=== PATIENT | male | born 1955 | race Caucasian/White ===

== ENCOUNTER → 2018-05-26 | Outpatient (CLI) | payer MEDICARE ==
[2018-05-26 20:11] LABS: BASOPHILS ABSOLUTE AUTO 0.06 K/mm3 (0.00-0.23); BASOPHILS PERCENT AUTO 1 % (0-2); EOSINOPHILS ABSOLUTE AUTO 0.36 K/mm3 (0.00-0.68); EOSINOPHILS PERCENT AUTO 5 % (0-6); Hematocrit 47.1 % (37.0-53.0); IMMATURE GRAN ABSOLUTE AUTO 0.03 K/mm3 (0.00-0.10); IMMATURE GRAN PERCENT AUTO 0 % (0-1); LYMPHOCYTES ABSOLUTE AUTO 1.59 K/mm3 (0.84-5.20); LYMPHOCYTES PERCENT AUTO 21 % (21-46); MONOCYTES PERCENT AUTO 9 % (4-13); Mean Corpuscular HGB 29.8 pg (26.0-34.0); Mean Corpuscular HGB Conc 31.8 g/dL (31.5-36.5); Mean Corpuscular Volume 94 fL (80-100); Mean Platelet Volume 11.2 fL (9.1-12.4); NEUTROPHILS ABSOLUTE AUTO 4.74 K/mm3 (1.96-9.15); NEUTROPHILS PERCENT AUTO 63 % (41-73); Platelet Count 178 K/mm3 (150-400); RDW Coefficient Variation 13.6 % (11.7-14.2); RDW Standard Deviation 46.7 fL (35.1-46.3); Red Blood Cell Count 5.03 M/mm3 (4.30-5.90); White Blood Cell Count 7.48 K/mm3 (4.00-11.30)
[2018-05-26 20:24] LABS: International Normalized Ratio 2.33; Prothrombin Time Results 22.9 Sec (9.7-11.5)
[2018-05-26 20:46] LABS: Alanine Aminotransfer (ALT/SGP 27 U/L (12-78); Albumin, Blood 3.6 g/dL (3.4-5.0); Albumin/Globulin Ratio 0.9 (0.8-1.8); Alk Phos 82 U/L (50-136); Anion Gap 8 mmol/L (6-16); Aspartate Aminotrans (AST/SGOT 19 U/L (12-37); Bilirubin, Total 0.6 mg/dL (0.1-1.0); Blood Urea Nitrogen 25 mg/dL (8-24); Bun/Creatinine Ratio 24.5 (12.0-20.0); CO2, Blood 31 mmol/L (21-32); Calcium, Blood 8.7 mg/dL (8.5-10.1); Chloride, Blood 101 mmol/L (98-108); Creatinine, Blood 1.02 mg/dL (0.60-1.20); Globulin, Blood 4.2 g/dL (2.2-4.0); Glomerular Filtration Rate >60 (60-); Glucose, Blood 106 mg/dL (70-99); Sodium, Blood 140 mmol/L (136-145); Total Protein, Blood 7.8 g/dL (6.4-8.2)
[2018-05-26 20:58] LABS: Prostate Specific Antigen 0.226 ng/mL (0.000-4.000)
== END | disposition home or self-care (01) ==
LOC: LAB SHORT 19:52 → LAB 19:52
PROVIDERS: Nurse Practitioner Family
DX: Z79.01 Long term (current) use of anticoagulants (principal); Z51.81 Encounter for therapeutic drug level monitoring; Z12.5 Encounter for screening for malignant neoplasm of prostate; I50.9 Heart failure, unspecified; E11.9 Type 2 diabetes mellitus without complications
CPT/HCPCS: 80053; 83036; 83880; 85025; 85610; G0103

== ENCOUNTER → 2018-08-25 | Outpatient (CLI) | payer MEDICARE ==
[2018-08-25 20:23] LABS: International Normalized Ratio 3.24; Prothrombin Time Results 30.9 Sec (9.7-11.5)
== END | disposition home or self-care (01) ==
LOC: LAB 19:53 → LAB SHORT 19:53
PROVIDERS: Nurse Practitioner Family
DX: Z79.01 Long term (current) use of anticoagulants (principal); Z51.81 Encounter for therapeutic drug level monitoring
CPT/HCPCS: 85610

== ENCOUNTER 2020-02-28 00:28 | Day surgery (SDC) | payer MEDICARE | END 2020-02-28 23:16 | disposition home or self-care (01) | LOC: WOUND 00:28 | DX: E11.622 Type 2 diabetes mellitus with other skin ulcer (principal); I11.0 Hypertensive heart disease with heart failure; I50.9 Heart failure, unspecified; L98.9 Disorder of the skin and subcutaneous tissue, unspecified; L98.499 Non-pressure chronic ulcer of skin of other sites with unspecified severity; Z88.5 Allergy status to narcotic agent; Z79.84 Long term (current) use of oral hypoglycemic drugs | CPT/HCPCS: G0463 ==

== ENCOUNTER → 2020-10-19 | Outpatient (CLI) | payer MEDICARE ==
[2020-10-19 19:15] LABS: BASOPHILS ABSOLUTE AUTO 0.07 K/mm3 (0.00-0.23); BASOPHILS PERCENT AUTO 1 % (0-2); EOSINOPHILS ABSOLUTE AUTO 0.37 K/mm3 (0.00-0.68); EOSINOPHILS PERCENT AUTO 6 % (0-6); Hematocrit 42.4 % (37.0-53.0); Hemoglobin 13.7 g/dL (13.5-17.5); IMMATURE GRAN ABSOLUTE AUTO 0.01 K/mm3 (0.00-0.10); IMMATURE GRAN PERCENT AUTO 0 % (0-1); LYMPHOCYTES ABSOLUTE AUTO 1.25 K/mm3 (0.84-5.20); LYMPHOCYTES PERCENT AUTO 21 % (21-46); MONOCYTES ABSOLUTE AUTO 0.54 K/mm3 (0.16-1.47); MONOCYTES PERCENT AUTO 9 % (4-13); Mean Corpuscular HGB 30.4 pg (26.0-34.0); Mean Corpuscular HGB Conc 32.3 g/dL (31.5-36.5); Mean Corpuscular Volume 94 fL (80-100); Mean Platelet Volume 11.4 fL (9.1-12.4); NEUTROPHILS ABSOLUTE AUTO 3.73 K/mm3 (1.96-9.15); NEUTROPHILS PERCENT AUTO 63 % (41-73); Platelet Count 202 K/mm3 (150-400); RDW Standard Deviation 48.6 fL (35.1-46.3); White Blood Cell Count 5.97 K/mm3 (4.00-11.30)
[2020-10-19 21:01] LABS: Alanine Aminotransfer (ALT/SGP 28 U/L (12-78); Albumin, Blood 3.5 g/dL (3.4-5.0); Albumin/Globulin Ratio 0.8 (0.8-1.8); Alk Phos 78 U/L (50-136); Anion Gap 6 mmol/L (6-16); Aspartate Aminotrans (AST/SGOT 21 U/L (12-37); Bilirubin, Total 0.5 mg/dL (0.1-1.0); Blood Urea Nitrogen 31 mg/dL (8-24); Bun/Creatinine Ratio 28.4 (12.0-20.0); CHOL/HDL RATIO 2.3; CO2, Blood 31 mmol/L (21-32); Calcium, Blood 8.6 mg/dL (8.5-10.1); Chloride, Blood 101 mmol/L (98-108); Cholesterol 78 mg/dL (50-200); Creatinine, Blood 1.09 mg/dL (0.60-1.20); Globulin, Blood 4.6 g/dL (2.2-4.0); Glomerular Filtration Rate >60 (60-); Glucose, Blood 112 mg/dL (70-99); HDL Cholesterol 34 mg/dL (>39); LDL/HDL RATIO 0.6; Low Density Lipoprotein Chol 20 mg/dL (0-110); Potassium, Blood 4.1 mmol/L (3.5-5.5); Sodium, Blood 138 mmol/L (136-145); Thyroid Stimulating Hormone 0.396 uIU/mL (0.360-4.800); Total Protein, Blood 8.1 g/dL (6.4-8.2); Triglycerides 118 mg/dL (30-160); Very Low Density Lipoprot Chol 23 mg/dL (6-32)
== END | disposition home or self-care (01) ==
LOC: LAB 17:50 → LAB SHORT 17:50
PROVIDERS: Nurse Practitioner Family
DX: E78.5 Hyperlipidemia, unspecified (principal); I10 Essential (primary) hypertension
CPT/HCPCS: 80053; 80061; 84443; 85025

== ENCOUNTER → 2021-10-26 | Outpatient (CLI) | payer MEDICARE ==
[2021-10-26 20:12] LABS: BASOPHILS ABSOLUTE AUTO 0.06 K/mm3 (0.00-0.23); BASOPHILS PERCENT AUTO 1 % (0-2); EOSINOPHILS ABSOLUTE AUTO 0.37 K/mm3 (0.00-0.68); EOSINOPHILS PERCENT AUTO 6 % (0-6); Hematocrit 47.1 % (37.0-53.0); Hemoglobin 14.3 g/dL (13.5-17.5); IMMATURE GRAN ABSOLUTE AUTO 0.01 K/mm3 (0.00-0.10); IMMATURE GRAN PERCENT AUTO 0 % (0-1); LYMPHOCYTES ABSOLUTE AUTO 1.52 K/mm3 (0.84-5.20); LYMPHOCYTES PERCENT AUTO 23 % (21-46); MONOCYTES PERCENT AUTO 8 % (4-13); Mean Corpuscular HGB 30.7 pg (26.0-34.0); Mean Corpuscular HGB Conc 30.4 g/dL (31.5-36.5); Mean Corpuscular Volume 101 fL (80-100); Mean Platelet Volume 11.4 fL (9.1-12.4); NEUTROPHILS ABSOLUTE AUTO 4.24 K/mm3 (1.96-9.15); NEUTROPHILS PERCENT AUTO 63 % (41-73); Platelet Count 204 K/mm3 (150-400); RDW Coefficient Variation 14.2 % (11.7-14.2); RDW Standard Deviation 53.2 fL (35.1-46.3); Red Blood Cell Count 4.66 M/mm3 (4.30-5.90)
[2021-10-26 20:40] LABS: Alanine Aminotransfer (ALT/SGP 20 U/L (12-78); Albumin, Blood 3.6 g/dL (3.4-5.0); Albumin/Globulin Ratio 0.9 (0.8-1.8); Alk Phos 82 U/L (50-136); Anion Gap 7 mmol/L (6-16); Aspartate Aminotrans (AST/SGOT 20 U/L (12-37); Bilirubin, Total 0.5 mg/dL (0.1-1.0); Blood Urea Nitrogen 26 mg/dL (8-24); CHOL/HDL RATIO 2.4; CO2, Blood 31 mmol/L (21-32); Chloride, Blood 103 mmol/L (98-108); Cholesterol 95 mg/dL (50-200); Creatinine, Blood 1.04 mg/dL (0.60-1.20); Globulin, Blood 3.8 g/dL (2.2-4.0); Glomerular Filtration Rate 79 (60-); Glucose, Blood 112 mg/dL (70-99); HDL Cholesterol 39 mg/dL (>39); LDL/HDL RATIO 0.9; Low Density Lipoprotein Chol 34 mg/dL (0-110); Potassium, Blood 4.3 mmol/L (3.5-5.5); Sodium, Blood 141 mmol/L (136-145); Thyroid Stimulating Hormone 0.475 uIU/mL (0.360-4.800); Total Protein, Blood 7.4 g/dL (6.4-8.2); Triglycerides 112 mg/dL (30-160); Very Low Density Lipoprot Chol 22 mg/dL (6-32)
== END | disposition home or self-care (01) ==
LOC: LAB SHORT 19:24 → LAB 19:24
PROVIDERS: Nurse Practitioner Family
DX: E11.40 Type 2 diabetes mellitus with diabetic neuropathy, unspecified (principal); E11.65 Type 2 diabetes mellitus with hyperglycemia
CPT/HCPCS: 80053; 80061; 83036; 84443; 85025

== ENCOUNTER 2022-11-27 17:20 | Emergency (ER) | payer OTHER, MEDICARE | END 2022-11-27 20:33 | disposition home or self-care (01) | LOC: ER 17:20 | DX: S22.069A Unspecified fracture of T7-T8 vertebra, initial encounter for closed fracture (principal); V43.63XA Car passenger injured in collision with pick-up truck in traffic accident, initial encounter; Z88.5 Allergy status to narcotic agent; E11.9 Type 2 diabetes mellitus without complications; I48.91 Unspecified atrial fibrillation ==

== ENCOUNTER 2023-05-26 10:01 | Emergency (ER) | payer MEDICARE ==
[~2023-05-26] VITALS: Ht 177.8 cm; Wt 145.2 kg
[~2023-05-26 10:01] MED LIST: OXAYDO5 M1 PO
[2023-05-26 11:22] LABS: BASOPHILS ABSOLUTE AUTO 0.06 K/mm3 (0.00-0.23); BASOPHILS PERCENT AUTO 1 % (0-2); EOSINOPHILS ABSOLUTE AUTO 0.79 K/mm3 (0.00-0.68); EOSINOPHILS PERCENT AUTO 12 % (0-6); Hematocrit 39.3 % (37.0-53.0); Hemoglobin 12.9 g/dL (13.5-17.5); IMMATURE GRAN ABSOLUTE AUTO 0.02 K/mm3 (0.00-0.10); IMMATURE GRAN PERCENT AUTO 0 % (0-1); LYMPHOCYTES ABSOLUTE AUTO 1.35 K/mm3 (0.84-5.20); LYMPHOCYTES PERCENT AUTO 21 % (21-46); MONOCYTES ABSOLUTE AUTO 0.72 K/mm3 (0.16-1.47); MONOCYTES PERCENT AUTO 11 % (4-13); Mean Corpuscular HGB Conc 32.8 g/dL (31.5-36.5); Mean Corpuscular Volume 95 fL (80-100); Mean Platelet Volume 10.3 fL (9.1-12.4); NEUTROPHILS ABSOLUTE AUTO 3.46 K/mm3 (1.96-9.15); NEUTROPHILS PERCENT AUTO 54 % (41-73); Platelet Count 200 K/mm3 (150-400); RDW Coefficient Variation 13.6 % (11.7-14.2); RDW Standard Deviation 47.6 fL (35.1-46.3); Red Blood Cell Count 4.16 M/mm3 (4.30-5.90)
[2023-05-26 11:45] LABS: Albumin, Blood 3.3 g/dL (3.4-5.0); Albumin/Globulin Ratio 0.8 (0.8-1.8); Bilirubin, Total 0.4 mg/dL (0.1-1.0); Bun/Creatinine Ratio 34.2 (12.0-20.0); Calcium, Blood 9.5 mg/dL (8.5-10.1); Creatinine, Blood 1.14 mg/dL (0.60-1.20); Globulin, Blood 4.3 g/dL (2.2-4.0); Potassium, Blood 4.3 mmol/L (3.5-5.5); Total Protein, Blood 7.6 g/dL (6.4-8.2)
[2023-05-26] MEDS ORDERED: CARVEDILOL25 M9 PO (12:50)
[2023-05-26] MEDS ORDERED: PROZAC2010 PO (12:50)
[2023-05-26] MEDS ORDERED: METF500 PO (12:50)
[2023-05-26] MEDS ORDERED: ATOR10 PO (12:51)
[2023-05-26] MEDS ORDERED: LISI20 PO (12:51)
[2023-05-26] MEDS ORDERED: KLOR-CON 1010 ME9 PO (12:51)
[2023-05-26] MEDS ORDERED: FURO40 PO (12:52)
[2023-05-26] MEDS ORDERED: LIDO700A20 TOP (12:53)
[2023-05-26] MEDS ORDERED: ACET500 PO (12:53)
[2023-05-26] MEDS ORDERED: ASPI81CH PO (12:53)
[2023-05-26] MEDS ORDERED: XARELTO20 MG PO (12:53)
[2023-05-26] MEDS ORDERED: IRON18 MG PO (12:54)
[2023-05-26 13:02] LABS: Influenza A, PCR NEGATIVE (NEGATIVE); Influenza B, PCR NEGATIVE (NEGATIVE); Resp Syncytial Virus, PCR NEGATIVE (NEGATIVE); SARS-Cov-2 (COVID-19) PCR, MMC NEGATIVE (NEGATIVE)
[2023-05-26 14:15] VITALS: BP 182/104
== END 2023-05-26 14:44 | disposition home or self-care (01) ==
LOC: ER 10:01
PROVIDERS: Emergency Medicine; Physician Assistant
DX: J84.10 Pulmonary fibrosis, unspecified (principal); I48.91 Unspecified atrial fibrillation; Z20.822 Contact with and (suspected) exposure to COVID-19; Z79.01 Long term (current) use of anticoagulants
CPT/HCPCS: 0241U; 71046; 80053; 83880; 85025; 93005; 93010; 99285-25

== ENCOUNTER 2023-09-21 13:02 | Inpatient (IN) | payer MEDICARE ==
[~2023-09-21] VITALS: Ht 177.8 cm; Wt 143.0 kg
[~2023-09-21 13:02] MED LIST changes: +ACET500 PO; +AMOCLA875 PO; +ASPI81CH PO; +ATOR10 PO; +AZIT250 PO; +CARVEDILOL25 M9 PO; +FURO40 PO; +GLUCOPHAGE1000 M1 PO; +IRON18 MG PO; +KLOR-CON 1010 ME9 PO; +LIDO700A20 TOP; +LISI20 PO; +PROZAC2010 PO; +Prednisone20 MG PO; +XARELTO20 MG PO
[2023-09-21 14:00] LABS: Hematocrit 33.5 % (37.0-53.0); Hemoglobin 10.9 g/dL (13.5-17.5); Mean Corpuscular HGB 31.5 pg (26.0-34.0); Mean Corpuscular HGB Conc 32.5 g/dL (31.5-36.5); Mean Corpuscular Volume 97 fL (80-100); Mean Platelet Volume 10.7 fL (9.1-12.4); Platelet Count 156 K/mm3 (150-400); RDW Coefficient Variation 14.1 % (11.7-14.2); RDW Standard Deviation 50.4 fL (35.1-46.3); Red Blood Cell Count 3.46 M/mm3 (4.30-5.90); White Blood Cell Count 5.47 K/mm3 (4.00-11.30)
[2023-09-21 14:11] LABS: Albumin, Blood 3.1 g/dL (3.4-5.0); Albumin/Globulin Ratio 0.8 (0.8-1.8); Bilirubin, Total 0.5 mg/dL (0.1-1.0); Bun/Creatinine Ratio 44.7 (12.0-20.0); Creatinine, Blood 0.96 mg/dL (0.60-1.20); Potassium, Blood 4.5 mmol/L (3.5-5.5); Total Protein, Blood 7.1 g/dL (6.4-8.2)
[2023-09-21 14:29] LABS: BAND PERCENT MAN 15 % (0-8); BASOPHILS PERCENT MAN 0 % (0-2); EOSINOPHILS PERCENT MAN 2 % (0-6); LYMPHOCYTES ABSOLUTE MAN 0.76 K/mm3 (0.84-5.20); LYMPHOCYTES PERCENT MAN 14 % (21-46); MONOCYTES ABSOLUTE MAN 0.43 K/mm3 (0.16-1.47); MONOCYTES PERCENT MAN 8 % (4-13); NEUTROPHILS ABSOLUTE MAN 4.15 K/mm3 (1.96-9.15); SEG NEUTROPHILS PERCENT MAN 61 % (41-73); TOTAL CELLS COUNTED 100
[2023-09-21 15:02] LABS: Base Excess Venous 7.3 mmol/L; Bicarbonate Venous 29.3 mmol/L (24.0-30.0); PCO2 Venous 55.3 mmHg (38-42); pH Blood Venous 7.38 (7.34-7.37)
[2023-09-21 16:20] LABS: Influenza A, PCR NEGATIVE (NEGATIVE); Influenza B, PCR NEGATIVE (NEGATIVE); Resp Syncytial Virus, PCR NEGATIVE (NEGATIVE); SARS-Cov-2 (COVID-19) PCR, MMC NEGATIVE (NEGATIVE)
[2023-09-21] MEDS ORDERED: Benzonatate 100 MG Cap PO PRN (17:10)
[2023-09-21] MEDS ORDERED: Acetaminophen 325 MG TABLET PO PRN (17:10)
[2023-09-21] MEDS ORDERED: Ipratropium/Albuterol SulF 2.5-0.5MG/3 ML Amp INH SCH (17:10)
[2023-09-21] MEDS ORDERED: Albuterol 2.5 MG/3 ML VIAL INH PRN (17:10)
[2023-09-21] MEDS ORDERED: Ondansetron HCl 2 MG / ML 2ML Vial IV PRN (17:15)
[2023-09-21] MEDS ORDERED: Azithromycin 500 MG in NS 250 ML IV SCH (17:15)
[2023-09-21] MEDS ORDERED: CefTRIAXone Sodium 1,000 MG in NS 100 ML IV SCH (17:15)
[2023-09-21] MEDS ORDERED: Furosemide 10 MG/ML 4ML Vial IV SCH (18:00)
[2023-09-21] MEDS ORDERED: MethylPREDNISolone Sod Succ 125 MG Vial IV SCH (18:00)
[2023-09-21] MEDS ORDERED: OxyCODONE 5 mg/Acetamin 325 mg TABLET PO PRN (18:00)
[2023-09-21] MEDS ORDERED: Rivaroxaban 10 MG Tab PO SCH (18:00)
[2023-09-21] MEDS ORDERED: Polyethylene Glycol 3350 17 gm PO PRN (18:05)
[2023-09-21] MEDS ORDERED: PRED5 PO (19:36)
[2023-09-21] MEDS ORDERED: Insulin Human Lispro 100 Units/ML 3ML Syringe SC SCH (21:00)
[2023-09-21] MEDS ORDERED: GuaiFENesin 600 MG TabCR PO SCH (21:00)
[2023-09-21] MEDS ORDERED: Lactobacil 2-S.Thermo-Bifido 1 1 Cap PO SCH (21:00)
[2023-09-21 21:02] VITALS: BP 136/84
--- NOTE | 2023-09-22 03:12 | NUR ---
THIS RN PROVIING BREAK COVERAGE FOR PRIMARY RN: MIDNIGHT DOSE OF PREDNISOLONE ADMINISTERED BY THIS RN AND BANDAR CARE PROVIDED FOLLOWING BM.
[2023-09-22 05:06] LABS: Hematocrit 32.6 % (37.0-53.0); Hemoglobin 10.7 g/dL (13.5-17.5); Mean Corpuscular HGB 31.3 pg (26.0-34.0); Mean Corpuscular HGB Conc 32.8 g/dL (31.5-36.5); Mean Corpuscular Volume 95 fL (80-100); Mean Platelet Volume 10.6 fL (9.1-12.4); Platelet Count 173 K/mm3 (150-400); RDW Coefficient Variation 13.9 % (11.7-14.2); Red Blood Cell Count 3.42 M/mm3 (4.30-5.90); White Blood Cell Count 4.21 K/mm3 (4.00-11.30)
[2023-09-22 05:13] VITALS: BP 149/102
[2023-09-22 05:26] LABS: BASOPHILS PERCENT MAN 0 % (0-2); Bun/Creatinine Ratio 47.4 (12.0-20.0); Calcium, Blood 8.8 mg/dL (8.5-10.1); Creatinine, Blood 0.8 mg/dL (0.60-1.20); EOSINOPHILS PERCENT MAN 0 % (0-6); LYMPHOCYTES ABSOLUTE MAN 0.16 K/mm3 (0.84-5.20); LYMPHOCYTES PERCENT MAN 4 % (21-46); MONOCYTES PERCENT MAN 0 % (4-13); Magnesium, Blood 1.7 mg/dL (1.6-2.4); NEUTROPHILS ABSOLUTE MAN 4.04 K/mm3 (1.96-9.15); Phosphorus, Blood 2.8 mg/dL (2.5-4.9); Potassium, Blood 3.9 mmol/L (3.5-5.5); SEG NEUTROPHILS PERCENT MAN 96 % (41-73); TOTAL CELLS COUNTED 100
[2023-09-22] MEDS ORDERED: Pantoprazole Sodium 20 MG Tab PO SCH (06:00)
--- NOTE | 2023-09-22 07:09 | NUR ---
SHIFT SUMMARY PT ARRIVES TO ROOM 306 FROM ER AT 1905, TRANSFERED SBA/INDEPENDENTLY FROM [facility] TO HOSPITAL BED. VSS, HTN, ON 3-5L NC, CPAP AT [facility]. DYSPNEIC WITH ANY MOVEMENT. PT'S HR IS IRREGULAR, PT STATES HE HAS A-FIB. BLOOD SUGARS WNL, NO COVERAGE NEEDED. VOIDING DARK YELLOW URINE INDEPENDENTLY IN BSC. USES A CANE OR FWW AT BASELINE. MODERATE AMOUNT, LOOSE BM'S X2. PT NEEDS ASSISTANCE WITH WIPING D/T BODY HABITUS. ON A CONSISTENT CARB DIET. BED IN LOWEST POSITION, CALL LIGHT WITHIN REACH.
[2023-09-22 07:35] VITALS: BP 127/91
[2023-09-22] MEDS ORDERED: Carvedilol 6.25 MG Tab PO SCH (08:00)
[2023-09-22] MEDS ORDERED: Furosemide 10 MG/ML 4ML Vial IV SCH (09:00)
[2023-09-22] MEDS ORDERED: FLUoxetine HCL 20 MG CAP PO SCH (09:00)
[2023-09-22] MEDS ORDERED: Aspirin 81 MG Chew PO SCH (09:00)
[2023-09-22] MEDS ORDERED: Lisinopril 20 MG Tab PO SCH (09:00)
--- NOTE | 2023-09-22 09:00 | NUR ---
pt sitting up on the side of the bed awake a/ox4, pleasant and cooperative with care, follows commands well, denies pain, lungs are tight and dim, desats with any exertion, currently on 5 liters 02 via n/c, resp even and unlaobred, no cough noted, hrirr, has hx of afib, trace edema noted to b/le, ppp faint, cap refill <3 sec, piv to rac site is clear and patent, btx4, abd large soft nontender, voids without diff, skin c/w/d, maew, sharon, can stand and tx to bsc, call light in reach.
[2023-09-22 14:49] VITALS: BP 131/86
--- NOTE | 2023-09-22 18:32 | NUR ---
pt had an uneventful day, no acute changes this shift. call light in reach.
[2023-09-22 19:40] VITALS: BP 143/96
[2023-09-23 05:05] VITALS: BP 142/99
[2023-09-23 05:14] VITALS: BP 138/93
[2023-09-23 06:05] LABS: Anion Gap 13 mmol/L (3-11); Blood Urea Nitrogen 47 mg/dL (8-24); Bun/Creatinine Ratio 43.5 (12.0-20.0); CO2, Blood 28 mmol/L (21-32); Calcium, Blood 8.9 mg/dL (8.5-10.1); Chloride, Blood 106 mmol/L (98-108); Creatinine, Blood 1.08 mg/dL (0.60-1.20); Glomerular Filtration Rate 75 (60-); Glucose, Blood 165 mg/dL (70-99); Phosphorus, Blood 3.8 mg/dL (2.5-4.9); Potassium, Blood 3.9 mmol/L (3.5-5.5); Sodium, Blood 143 mmol/L (136-145)
--- NOTE | 2023-09-23 06:39 | NUR ---
SHIFT SUMMARY PT IS A&OX4, PLEASANT AND APPRECIATIVE OF CARES. VSS, HTN, ON 3-5L NC, CPAP AT NOC. C/O GENERALIZED BODY ACHES, MANAGED WITH PRN TYLENOL. DYSPNEIC WITH ANY MOVEMENT. PT'S HR IS IRREGULAR, PT STATES HE HAS A-FIB. BLOOD SUGARS WNL, NO COVERAGE NEEDED. VOIDING YELLOW URINE INDEPENDENTLY IN BSC. USES A CANE OR FWW AT BASELINE. MODERATE AMOUNT, LOOSE BM'S X2. PT NEEDS ASSISTANCE WITH WIPING D/T BODY HABITUS. PT STATES HE SLEPT WELL T/O NOC. ON A CONSISTENT CARB DIET. BED IN LOWEST POSITION, CALL LIGHT WITHIN REACH.
[2023-09-23 07:49] VITALS: BP 152/109
[2023-09-23] MEDS ORDERED: MethylPREDNISolone Sod Succ 125 MG Vial IV SCH (09:00)
[2023-09-23] MEDS ORDERED: DEXTROMETHORPHAN/BENZOCAINE 1 EACH LOZENGE MT PRN (13:15)
--- NOTE | 2023-09-23 15:34 | NUR ---
Spiritual care visit conducted. Patient is sitting on the EOB and is very talkative. Within a few minutes of visiting, his oxygen alarm begins showing beeping. He continues talking as if there is no trouble at all. His clinical comes in helps get his numbers where they need to be. He shared about his weight loss, his increased mobility and strength and his commitment to read the BIble everyday. He has been improving for the last 7 yrs. He tells me the discouragement he has felt in losing so much ground in the last couple of weeks. He has had several hospital visits and has lost some of his mobilty and strength. We talk about the ups and downs of life and the importance of staying centered and solid in the positive thoughts and practices. I provide therapeutic listening, theological insights and prayer. The patient responded well and showed signs of reduced stress. I will continue to remain avaialble to patient and family.
[2023-09-23 15:43] VITALS: BP 153/88
--- NOTE | 2023-09-23 17:37 | NUR ---
SHIFT SUMMARY A&OX4, COOPERATIVE WITH CARE, TALKATIVE. DENIED ANY CP/PRESSURE, HEADACHE, OR DIZZINESS THIS SHIFT. SOB WITH EXERTION AND TALKING. CURRENTLY ON 5L VIA NC, PERIODICALLY NEEDS TO PUT NC IN MOUTH TO INCREASE O2 SATURATION. SATURATION DIPS INTO THE 70'S WHEN TALKING. PRN THROAT LOZENGES ORDERED. NO ACUTE CHANGES THIS SHIFT. CHEST CT DONE TODAY. PLAN TO MONITOR PT FOR A COUPLE MORE DAY PER PROVIDER. PATIENT CURRENTLY EATING DINNER. BED IN THE LOWEST POSITION. CALL LIGHT WITHIN REACH.
[2023-09-23 19:59] VITALS: BP 141/74
[2023-09-24 05:33] LABS: Hematocrit 32.2 % (37.0-53.0); Hemoglobin 10.6 g/dL (13.5-17.5); Mean Corpuscular HGB 31.6 pg (26.0-34.0); Mean Corpuscular HGB Conc 32.9 g/dL (31.5-36.5); Mean Corpuscular Volume 96 fL (80-100); Mean Platelet Volume 10.4 fL (9.1-12.4); Platelet Count 227 K/mm3 (150-400); RDW Coefficient Variation 13.8 % (11.7-14.2); Red Blood Cell Count 3.35 M/mm3 (4.30-5.90); White Blood Cell Count 11.48 K/mm3 (4.00-11.30)
[2023-09-24 05:41] VITALS: BP 152/92
[2023-09-24 05:44] LABS: Albumin/Globulin Ratio 0.8 (0.8-1.8); Bilirubin, Total 0.5 mg/dL (0.1-1.0); Bun/Creatinine Ratio 51.2 (12.0-20.0); Calcium, Blood 8.8 mg/dL (8.5-10.1); Globulin, Blood 3.7 g/dL (2.2-4.0); Potassium, Blood 3.8 mmol/L (3.5-5.5); Total Protein, Blood 6.7 g/dL (6.4-8.2)
[2023-09-24 07:38] VITALS: BP 146/98
--- NOTE | 2023-09-24 07:50 | NUR ---
PALLET STONE POSITIONER REPORT PT A&O X 4, PLEASANT. PT SBA IN ROOM WITH HELP PROVIDED AFTER TOILETING. PT PROVIDED WITH FULL OXYGEN MASK WHICH PT LIKED BETTER AND REPORTED IT IMPROVED HIS SATS COMPARED TO DAY SHIFT. PT WOULD BECOME SOB, TACHY AND DESAT DOWN TO MID 70'S WHEN TRANSITIONING HIMSELF FROM BED TO BEDSIDE COMMODE. AT ONE POINT I TURNED HIS OXYGEN UP TO 7L DUE TO HIM NOT GOING ABOVE 85% ON THE 5L. HE WAS LATER RETURNED TO THE 5L WITH NO FURTHER INCIDENTS OF NEEDING HIGHER O2. PT SLEPT WITH 3L BLEED IN VIA CPAP. HE WOULD THEN SIT AND PERFORM SLOW BREATHING EXERCISES AND NORMALIZE BACK OUT. PT WOKE AROUND 0230 SHOWING INCREASED ANXIETY STATING THAT RT WAS SUPPOSED TO GIVE HIM A BREATHING TREATMENT WHICH HE HAD REFUSED AT THAT TIME. PT VITALS STABLE DURING THIS TIME. RT CONTACTED AND PT WAS GIVEN A BREATHING TREATMNET. HE ALSO C/O ABDOMINAL PAIN IN UPPER ABDOMEN "BURNING AND TIGHTENING IN HIS MUSCLES." HE DENIES THAT IT IS INDIGETION RELATED. PT GIVEN A PERCOCET WITH RELIEF OF HIS SX. PT DID NOT GO TO BED UNTIL AROUND 0100 AND THEN WOKE OFF AND ON. 09/24/23 CAN NUÑEZ RN
[2023-09-24] MEDS ORDERED: NS 250 ML IV PRN (09:50)
[2023-09-24 14:11] VITALS: BP 125/78
--- NOTE | 2023-09-24 19:22 | NUR ---
PATIENT IS ALERT AND ORIENTED AND COOPERATIVE WITH CARE. ON 5L O2 VIA NC. BREATHING TREATMENTS PRN. DESATS WITH EXERTION. UP IN CHAIR THIS SHIFT. USES THE BSC INDEPENDENTLY
[2023-09-24 19:55] VITALS: BP 172/110
[2023-09-24 21:16] VITALS: BP 157/97
[2023-09-25 04:27] VITALS: BP 151/102
--- NOTE | 2023-09-25 05:10 | NUR ---
END OF SHIFT SUMMARY PT A&OX4. ON 5-7L O2 VIA NC, SOB ON EXERT WITH DESAT TO 70S, SLOW TO RECOVER. MONITORED ON CONT PULSE OX. ON CPAP AT NIGHT WITH 3L BLEED IN. UP TO BSC INDEPENDENTLY, NEEDING ASSIST WITH BANDAR CARE ONLY WITH BM. C/O ABD PAIN, UNCHANGED FROM PREVIOUS PRESENTATION, MEDICATED PER EMAR WITH GOOD EFFECT.
[2023-09-25 06:42] LABS: Albumin, Blood 2.8 g/dL (3.4-5.0); Albumin/Globulin Ratio 0.7 (0.8-1.8); Bilirubin, Total 0.5 mg/dL (0.1-1.0); Bun/Creatinine Ratio 51.5 (12.0-20.0); Calcium, Blood 8.5 mg/dL (8.5-10.1); Creatinine, Blood 1.01 mg/dL (0.60-1.20); Globulin, Blood 4.1 g/dL (2.2-4.0); Potassium, Blood 4.1 mmol/L (3.5-5.5); Total Protein, Blood 6.9 g/dL (6.4-8.2)
[2023-09-25 07:40] VITALS: BP 140/124
[2023-09-25 08:33] VITALS: BP 144/100
[2023-09-25 10:53] LABS: PCO2 Arterial 50.6 mmHg (35-45); PO2 Arterial 47.4 mmHg (80-100); pH Blood Arterial 7.39 (7.35-7.45)
[2023-09-25] MEDS ORDERED: AcetaZOLAMIDE Sodium 500 MG Vial IV SCH (16:00)
[2023-09-25 16:09] VITALS: BP 146/76
--- NOTE | 2023-09-25 17:23 | NUR ---
SHIFT SUMMARY: PATIENT IS AN ALERT AND ORIENTED X4 MALE HERE FOR SHORTNESS OF BREATH AND DECREASES OXYGEN SATURATION LEVELS RELATED TO INTERSTITIAL LUNG DISEASE. HE HAS BE REQUIRING NASAL CANNULA O2 ANYWHERE FROM 3-7 AT TIMES TO GET OXYGEN SATURATION LEVELS ABOVE 88%. PATIENT MOST OF THE TIME MAINTAINS AT 88% OR ABOVE AT 3 L. HE WAS SWITCHED TO A BLUETOOTH CONTINOUS BI OX MACHINE FOR OUTSIDE OF THE ROOM MONITORING PER PULMONOLGY REQUEST VERSUS PCU MONITORING. PATIENT DOES NOT DISPLAY AT RESPIRATORY DISTRESS. HE IS PLEASANT AND COOPERATIVE. MONITORING I&OS. HE CALLS APPROPRIATELY. NO SIGNS OR SYMPTOMS OF DISTRESS, CALL LIGHT WITHIN REACH, PLAN OF CARE ONGOING.
[2023-09-25 19:50] VITALS: BP 128/85
[2023-09-26 03:41] VITALS: BP 150/99
[2023-09-26 05:23] LABS: BASOPHILS ABSOLUTE AUTO 0.01 K/mm3 (0.00-0.23); BASOPHILS PERCENT AUTO 0 % (0-2); EOSINOPHILS PERCENT AUTO 0 % (0-6); Hematocrit 33.5 % (37.0-53.0); Hemoglobin 10.8 g/dL (13.5-17.5); IMMATURE GRAN ABSOLUTE AUTO 0.11 K/mm3 (0.00-0.10); IMMATURE GRAN PERCENT AUTO 1 % (0-1); LYMPHOCYTES ABSOLUTE AUTO 0.54 K/mm3 (0.84-5.20); LYMPHOCYTES PERCENT AUTO 5 % (21-46); MONOCYTES ABSOLUTE AUTO 0.55 K/mm3 (0.16-1.47); MONOCYTES PERCENT AUTO 5 % (4-13); Mean Corpuscular HGB 31.2 pg (26.0-34.0); Mean Corpuscular HGB Conc 32.2 g/dL (31.5-36.5); Mean Corpuscular Volume 97 fL (80-100); Mean Platelet Volume 10.7 fL (9.1-12.4); NEUTROPHILS ABSOLUTE AUTO 9.92 K/mm3 (1.96-9.15); NEUTROPHILS PERCENT AUTO 89 % (41-73); Platelet Count 257 K/mm3 (150-400); RDW Coefficient Variation 13.4 % (11.7-14.2); RDW Standard Deviation 48.1 fL (35.1-46.3); Red Blood Cell Count 3.46 M/mm3 (4.30-5.90); White Blood Cell Count 11.13 K/mm3 (4.00-11.30)
[2023-09-26 05:42] LABS: Albumin, Blood 2.8 g/dL (3.4-5.0); Albumin/Globulin Ratio 0.7 (0.8-1.8); Bilirubin, Total 0.5 mg/dL (0.1-1.0); Bun/Creatinine Ratio 50.9 (12.0-20.0); Calcium, Blood 8.8 mg/dL (8.5-10.1); Creatinine, Blood 0.96 mg/dL (0.60-1.20); Globulin, Blood 4.1 g/dL (2.2-4.0); Magnesium, Blood 2.1 mg/dL (1.6-2.4); Phosphorus, Blood 3.3 mg/dL (2.5-4.9); Potassium, Blood 3.8 mmol/L (3.5-5.5); Total Protein, Blood 6.9 g/dL (6.4-8.2)
--- NOTE | 2023-09-26 05:52 | NUR ---
END OF SHIFT SUMMARY PT REPORTS FEELING SOMEWHAT LESS SOB. REMAINS ON 4L O2 VIA NC AND 3L VIA CPAP AT NIGHT. MONITORED ON CONT PULSE OX WITH GOAL OF 88-90% SAT PER PULMONARY. PT HAD SEVERAL EPISODES OF DESAT INTO HIGH 70S, SLOW TO RECOVER. C/O SINUS PRESSURE, ADDED HUMIDIFIER TO O2, PT REPORTS IMPROVEMENT. NO ACUTE EVENTS OVERNIGHT.
[2023-09-26 07:52] VITALS: BP 134/94
[2023-09-26] MEDS ORDERED: Furosemide 10 MG/ML 4ML Vial IV SCH (09:00)
[2023-09-26] MEDS ORDERED: Saline Nasal Spray 45 ML PRN (10:55)
[2023-09-26] MEDS ORDERED: Ipratropium/Albuterol SulF 2.5-0.5MG/3 ML Amp INH SCH (11:41)
--- NOTE | 2023-09-26 11:45 | NUR ---
THIS RN PROVIDING BREAK COVERAGE FOR PRIMARY RN. IV COMPLETE; SALINE LOCKED.
--- NOTE | 2023-09-26 15:14 | NUR ---
THIS RN TO PATIENT ROOM. NO C/O CHEST PAIN, BUT DID STATE SHE NEEDED TO USE THE BATHROOM REALLY BADLY AND THAT WAS PROBABLY WHY HER BP WAS SO HIGH. ASSISTED IN GOING TO COMMODE FOR SMALL BM AND VOID AND BACK TO BED. CLIENT DELIVERY MANAGER TO CHECK VITALS AGAIN. TELE REPORT WNL SINUS WITHOUT ECTOPY.
[2023-09-26 15:30] VITALS: BP 134/94
--- NOTE | 2023-09-26 18:00 | NUR ---
SHIFT SUMMARY: PATIENT IS A&OX4, AND A SBA TO THE BEDSIDE COMMODE. HE CALLS APPROPRIATELY AND COMPLIANT WITH CARE. HE IS EATING, DRINKING, VOIDING/HAVING BMS. HE IS REQUIRING 3-7 LITERS OF NASAL CANNULA OXYGEN MOSTLY ONLY 3-5 TO MAINTAIN OXYGEN SATURATION AT 90% OR GREATER. HE SEEMS TO BE DOING BETTER TODAY WITH HIS OXYGEN NEEDS. RECORDS FROM [facility] REQUESTED. PATIENT IN BEDSIDE RECLINER, CALL LIGHT WITHIN REACH, EATING DINNER, NO SIGNS OR SYMPTOMS OF DISTRESS, PLAN OF CARE ONGOING.
[2023-09-26 19:44] VITALS: BP 136/85
[2023-09-27 04:07] VITALS: BP 140/96
--- NOTE | 2023-09-27 04:34 | NUR ---
SHIFT SUMMARY PT A&OX4 AND PLEASANT. IND TO BSC. PT C/O PAIN IN JOINTS AND MEDICATED PER EMAR WITH GOOD EFFECT. NO INSULIN NEED AT HS. PT ON 5L OF OXYGEN AND MAINTAINING SATS IN THE 90's. PT DOES DESAT DOWN TO THE HIGH 70'S/80'S WITH ACTIVITY. PT USED INCENTIVE SPIROMETER SEVERAL TIMES BEFORE SLEEP. PT CHOSE TO SLEEP IN RECLINER STATING THAT'S HOW HE NORMALLY SLEEPS AT HOME. CPAP USED DURING THE NIGHT WITH 3L BLEED IN. VSS. CALL LIGHT IN REACH.
[2023-09-27 05:10] LABS: Hematocrit 34.8 % (37.0-53.0); Hemoglobin 11.2 g/dL (13.5-17.5); Mean Corpuscular HGB 31.2 pg (26.0-34.0); Mean Corpuscular HGB Conc 32.2 g/dL (31.5-36.5); Mean Corpuscular Volume 97 fL (80-100); Mean Platelet Volume 10.8 fL (9.1-12.4); Platelet Count 266 K/mm3 (150-400); RDW Coefficient Variation 13.2 % (11.7-14.2); RDW Standard Deviation 47.2 fL (35.1-46.3); Red Blood Cell Count 3.59 M/mm3 (4.30-5.90); White Blood Cell Count 12.27 K/mm3 (4.00-11.30)
[2023-09-27 05:48] LABS: Calcium, Blood 8.6 mg/dL (8.5-10.1); Potassium, Blood 4.1 mmol/L (3.5-5.5)
[2023-09-27 07:35] VITALS: BP 146/98
[2023-09-27] MEDS ORDERED: LevoFLOXacin 750 MG/D5W 150ML 150 ML IV SCH (14:00)
[2023-09-27 15:16] VITALS: BP 132/95
--- NOTE | 2023-09-27 16:33 | NUR ---
PT HAS BEEN AOX4 AND COOPERATIVE OF CARE. PT DOING WELL O2 HAS BEEN AT 4L FOR A GOOD PORTION OF TODAY. PT DOES DESAT WHEN AMBULATING TO COMMODE AND REQUIRES O2 TO BE BUMPED UP FOR THIS AND IF HE IS TALKING A LOT WITH VISITORS. PT IS ABLE TO USE CALL LIGHT APPROPRIATELY DO DISTRESS NOTED. CALL LIGHT WITHIN REACH WILL CONTINUE TO MONITOR.
[2023-09-27 19:37] VITALS: BP 154/101
[2023-09-28 04:39] LABS: Magnesium, Blood 2.4 mg/dL (1.6-2.4)
[2023-09-28 04:40] LABS: Creatinine, Blood 0.87 mg/dL (0.60-1.20); Phosphorus, Blood 3.8 mg/dL (2.5-4.9); Potassium, Blood 4.3 mmol/L (3.5-5.5)
[2023-09-28 04:52] VITALS: BP 155/116
--- NOTE | 2023-09-28 05:58 | NUR ---
SUMMARY: PT A/OX4, CALLS APPROPRIATELY TO SPECIFY NEEDS AND IS PLEASANT AND COOPERATIVE W/CARE. HE REMAINS ON 4L O2 VIA NC AND REQUIRES TITRATIONS UP TO 5-7L AT TIMES OF EXERTION OR WHEN SPEAKING FOR LONGER DURATIONS. HE TOLERATED CPAP AT HS W/3L BLEED IN FOR SPO2 WNL ON CONT BIOX. LS ARE COARSE W/CRACKLES TO MID AND LOWER LOBES. HE'S AWARE OF LIMITATIONS AND CALLS FOR ASSIST PRN BUT WAS INDEPENDENT TO BSC T/O NOCTE. CEPACOL LOZENGE WAS RECEIVED PER REQUEST FOR SORE THROAT. SARAH HOSE PLACED FOR BLE AND LEGS ELEVATED WHILE ASLEEP IN BED. NO ACUTE CHANGES, VSS/AFEBRILE. WCTM AND REPORT TO DAY RN.
[2023-09-28 07:43] VITALS: BP 151/105
[2023-09-28 15:31] VITALS: BP 152/91
--- NOTE | 2023-09-28 16:56 | NUR ---
NO ACUTE CHANGES. PT IS AOX4 AND COOPERATIVE OF CARE. PT ABLE TO MAKE NEEDS KNOWN. PT HAS HAD O2 at 4-5L and has maintained in the low 90s. PT ABLE TO SELF TRANSFER TO COMMODE WITH SOME DESATING WITH EXCERTION. NO DISTRESS NOTEDD CURRENTLY AND CALL LIGHT WITHIN REACH. WILL CONTINUE TO MONITOR.
[2023-09-28 19:35] VITALS: BP 123/102
[2023-09-29] VITALS (9 sets, daily range): BP systolic 139–150; BP diastolic 93–98
[2023-09-29 04:29] LABS: Hemoglobin 11.1 g/dL (13.5-17.5)
[2023-09-29 04:48] LABS: Albumin, Blood 2.6 g/dL (3.4-5.0); Albumin/Globulin Ratio 0.7 (0.8-1.8); Bilirubin, Total 0.5 mg/dL (0.1-1.0); Bun/Creatinine Ratio 48.3 (12.0-20.0); Calcium, Blood 8.8 mg/dL (8.5-10.1); Creatinine, Blood 0.97 mg/dL (0.60-1.20); Globulin, Blood 3.9 g/dL (2.2-4.0); Potassium, Blood 4.8 mmol/L (3.5-5.5); Total Protein, Blood 6.5 g/dL (6.4-8.2)
--- NOTE | 2023-09-29 06:16 | NUR ---
FERN CUTTER PATIENT IS A&OX4, VITALS ARE STABLE, ON 3L NC HIGH FLOW. OXYGEN TEND TO DROP WHEN MOVING OR WHEN TALKIG. HIS OXYGEN HAS TO BE INCREASE EVERYTIME HE GETS UP. PATIENT COMPLAINED OF MINOR PAIN AND PRN TYLENOL WAS GIVEN TWICE DURING SHIFT. PLAN IS TO HAVE A LUNG BIOPSY DONE SOMETIME THIS WEEK.
--- NOTE | 2023-09-29 07:38 | NUR ---
ASSUMED CARE: PT SITTING IN CHAIR, TALKING TO STAFF AND RT DURING BEDSIDE REPORT. ON 4L O2 VIA NC. DENIES NEEDS OR CONCERNS AT THIS TIME.
--- NOTE | 2023-09-29 08:45 | NUR ---
OT AT BEDSIDE
[2023-09-29] MEDS ORDERED: Fluconazole 100 MG Tab PO SCH (09:00)
[2023-09-29] MEDS ORDERED: Piperacillin/Tazobactam Sod 4.5 GM in NS 100 ML IV SCH (12:00)
[2023-09-29] MEDS ORDERED: Rivaroxaban 10 MG Tab PO SCH (18:00)
--- NOTE | 2023-09-29 18:26 | NUR ---
SHIFT SUMMARY: DR MARRERO CAME TO SEE PT AND ORDERED FOR [place] WHEN BED IS AVAILABLE. PT HAS BEEN ON 3-7L O2 VIA NC THIS SHIFT FOR EXERTION AND COMFORT. PLANS FOR TRANSFER FOR BIOPSY AND HIGHER LEVEL OF CARE. NO ACUTE NEEDS OR CONCERNS AT THIS TIME.
--- NOTE | 2023-09-29 21:25 | NUR ---
@2031 THIS NURSE CALLED TO GIVE SBAR OVER THE PHONE TO TONJA BEAUCHAMP AT [facility] IN [place], [place]. LEFT A VOICEMAIL MESSAGE REGARDING PT.TRANSFERRING THIS EVENING. WILL CALL AGAIN TO NITO@ P. [phone]
--- NOTE | 2023-09-29 22:13 | NUR ---
SBAR REPORT OVER THE PHONE TO LEIGHTON AT [facility], [place] AT 2205 BY THIS TAPPER BIT.
--- NOTE | 2023-09-29 23:22 | NUR ---
DISCHARGE-PT. DISCHARGED AT 2300, TRANSPORTED VIA AMBULANCE/GURNEY TO [facility] IN [place], [place]. PATIENTS BELONGINGS ([employer] [facility] [employer]) ARE WITH HIM.
== END 2023-09-29 22:59 | disposition short-term general hospital (02) | DRG 871 ==
LOC: ER 13:02 → MEDS 17:05 → EDBEDREQ 17:48 → EDBEDREQSVC 17:48 → MEDS 18:53
PROVIDERS: Emergency Medicine; Hospitalist; Student in an Organized Health Care Education/Training Program; ADMIT Internal Medicine
PROC: 5A09357 Assistance with Respiratory Ventilation, Less than 24 Consecutive Hours, Continuous Positive Airway Pressure (ICD-10-PCS; principal; 2023-09-21)
PROC: 3E03329 Introduction of Other Anti-infective into Peripheral Vein, Percutaneous Approach (ICD-10-PCS; 2023-09-21)
PROC: 4A033R1 Measurement of Arterial Saturation, Peripheral, Percutaneous Approach (ICD-10-PCS; 2023-09-25)
DX: A41.52 Sepsis due to Pseudomonas (principal); B37.1 Pulmonary candidiasis; J15.69 Pneumonia due to other Gram-negative bacteria; J15.1 Pneumonia due to Pseudomonas; J96.21 Acute and chronic respiratory failure with hypoxia; I50.43 Acute on chronic combined systolic (congestive) and diastolic (congestive) heart failure; J47.0 Bronchiectasis with acute lower respiratory infection; J82.81 Chronic eosinophilic pneumonia; Z68.42 Body mass index [BMI] 45.0-49.9, adult; A41.89 Other specified sepsis; B37.7 Candidal sepsis; D86.0 Sarcoidosis of lung; G47.33 Obstructive sleep apnea (adult) (pediatric); E11.9 Type 2 diabetes mellitus without complications; F32.A Depression, unspecified; I11.0 Hypertensive heart disease with heart failure; J84.112 Idiopathic pulmonary fibrosis; I48.91 Unspecified atrial fibrillation; M17.0 Bilateral primary osteoarthritis of knee; E78.5 Hyperlipidemia, unspecified; E66.01 Morbid (severe) obesity due to excess calories; Z86.718 Personal history of other venous thrombosis and embolism; Z86.711 Personal history of pulmonary embolism; Z79.01 Long term (current) use of anticoagulants; Z99.81 Dependence on supplemental oxygen; Z79.52 Long term (current) use of systemic steroids; Z88.5 Allergy status to narcotic agent; Z79.84 Long term (current) use of oral hypoglycemic drugs; Z79.82 Long term (current) use of aspirin; Z79.2 Long term (current) use of antibiotics; Z79.891 Long term (current) use of opiate analgesic
CPT/HCPCS: 0241U; 36415; 36416; 36600; 71046; 71250; 80048; 80053; 80069; 82803; 82947; 83605; 83690; 83735; 83880; 84100; 84145; 84484; 85014; 85018; 85025; 85027; 85379; 87040; 87070; 87077; 87106; 87186; 87205; 93005; 93010; 93306; 94640; 94660; 94664; 94760; 94762; 97110; 97110-CQ; 97162; 97165; 97530; 97530-CQ; 97535; 99285-25; A9270; C9113; J0456; J0696; J1120; J1940; J1956; J2543; J2919; J7050